=== PATIENT | female | born 1945 | race Caucasian/White ===

== ENCOUNTER 2018-09-21 11:51 | Inpatient (IN) ==
[2018-09-21] MEDS ORDERED: Diphtheria/Tetanus/Pertussis Vaccine Inj 0.5 ML Syringe IM ONE (11:57)
--- NOTE | 2018-09-21 12:10 | ED ---
HPI General Chief Complaint: Fall Stated Complaint: Trauma Alert Time Seen by Provider: 09/21/18 12:03 Source: patient Mode of arrival: EMS Limitations: no limitations History of Present Illness HPI narrative: 72 y/o female was riding her horse when she got hit by a tree and fell down. She was repetitive and confused and was given a GCS of 14 initially. She was in a deeply [place] area and they had a hard time getting to her by her one. When they got to her her vitals were stable. She noted left shoulder pain and had lacerations to her head. Patient currently confirms pain to her left shoulder and her head and denies other complaints. History is limited on initial examination given acuity Related Data Home Medications Medication Instructions Recorded Confirmed No Known Home Medications 09/21/18 09/21/18 Allergies Allergy/AdvReac Type Severity Reaction Status Date / Time No Known Allergies Allergy Verified 09/21/18 12:39 Review of Systems ROS: all other systems reviewed are negative PMFSH History History Provided By: Patient (denies medical, no medications) Social History Social History Recent Travel in [facility] within the Last 8 Weeks: No Recent Out of Country Travel within the Last 8 Weeks: No Exam Narrative Exam Narrative: GENERAL: 72 y/o female who appears uncomfortable SKIN: Focused skin assessment warm/dry. HEAD: patient with supraorbital laceration to left eye just below eyebrow laterally, there is also concurrently to the left posterior portion of the pinna laceration noted as well EYES: Pupils equal and round. No scleral icterus. No injection or drainage. ENT: No nasal bleeding or discharge. Mucous membranes pink and moist. NECK: Trachea midline. CARDIOVASCULAR: Regular rate and rhythm. RESPIRATORY: No accessory muscle use. Clear to auscultation. Breath sounds equal bilaterally. GASTROINTESTINAL: Abdomen soft, non-tender, nondistended. MUSCULOSKELETAL: No obvious deformities. No clubbing. No cyanosis. Pain with palpation of left shoulder, no pain with other joints , neurovascularly intact, no lacerations over, compartments soft. NEUROLOGICAL: Awake and alert. Motor grossly within normal limits. Normal speech Course Reevaluation(s) Reevaluation #1: ED workup without emergent findings. Trauma surgeon reviewed imaging and agrees no emergent findings. C-collar removed. Lacerations repaired. Sister at bedside, when patient tries to ambulate she gets too dizzy and can only make a step with 2 people helping assist her. This is likely related to her concussion and she will need to be observed overnight. Consultations Consultation #1: dr denney called and notified to be available if needed and given ems report dr denney updated and agrees to admit given initial loss of consciousness, intermittent confusion, dizziness and inability to ambulate Initial Documented Vital Signs Pulse Oximetry 100 09/21/18 12:01 Last Documented Vital Signs Pulse Oximetry 100 09/21/18 12:42 Procedures Laceration Laceration 1: Site: face Side (If applicable): left Size (cm): 0.5 Description: linear Depth: simple, single layer Anesthetic used: lidocaine 1% Anesthesia technique:: local infiltration Amount (mL): 2 Pre-repair:: wound explored, irrigated extensively and deep structures intact Skin layer closed with: ethilon Size (cm): 4-0 Number of sutures:: 2 Technique:: simple, interrupted Laceration 2: Site: face Side (If applicable): left Size (cm): 5 Description: linear and flap Depth: simple, single layer Anesthetic used: lidocaine 1% Anesthesia technique:: local infiltration Amount (mL): 6 Pre-repair:: wound explored, irrigated extensively and deep structures intact Skin layer closed with: prolene Size (cm): 4-0 Number of sutures:: 10 Technique:: simple, interrupted Ultrasound POC Ultrasound Procedure: Emergency department E-FAST was performed with patient consent. The curvilinear probe was used in the right upper quadrant/Morison's pouch, suprapubic, left upper quadrant/spleenorenal space, epigastric, parasternal long axis and anterior bilateral chest wall. There was no evidence of peritoneal free fluid, pericardial effusion, or pneumothorax. Quality Measure Queries Trauma Alert - Level Two Trauma Alert Level Two: Full trauma team activation, Patient evaluated and Trauma Surgeon called Medical Decision Making MDM Narrative Medical decision making narrative: . Patient arrived in the trauma bay with stable vitals. Bedside fast without free fluid, I stats reviewed, chest x-ray and pelvis x-ray noted, Patient went to CT and will follow Medical Screen Exam Complete: Yes Emergency Medical Condition: Yes Differential Diagnosis Differential Diagnosis: Pneumothorax, head bleed, fracture Lab Data Lab results reviewed: Yes I reviewed the patient's lab results. Result diagrams: 09/21/18 11:55 Lab Results 09/21/18 09/21/18 09/21/18 Range/Units 11:55 11:55 11:55 WBC 12.7 H (4.0-11.0) th/mm3 RBC 4.21 (4.00-5.30) mil/mm3 Hgb 13.0 (11.6-15.3) gm/dL POC Hgb (Calc) 11.9 (11.6-15.3) g/dL Hct 38.0 (35.0-46.0) % POC Hct 35.0 (35-46.0) % MCV 90.3 (80.0-100.0) fL MCH 30.9 (27.0-34.0) pg MCHC 34.3 (32.0-36.0) % RDW 12.8 (11.6-17.2) % Plt Count 249 (150-450) th/mm3 MPV 8.0 (7.0-11.0) fL Neut % (Auto) 75.1 H (16.0-70.0) % Lymph % (Auto) 18.5 (9.0-44.0) % Broome % (Auto) 5.4 (0.0-8.0) % Eos % (Auto) 0.5 (0.0-4.0) % Baso % (Auto) 0.5 (0.0-2.0) % Neut # (Auto) 9.5 H (1.8-7.7) th/mm3 Lymph # (Auto) 2.3 (1.0-4.8) th/mm3 Broome # (Auto) 0.7 (0.0-0.9) th/mm3 Eos # (Auto) 0.1 (0.0-0.4) th/mm3 Baso # (Auto) 0.1 (0.0-0.2) th/mm3 WBC Differential . Differential Comment Auto diff final PT 10.8 (9.8-11.6) sec INR 1.1 Ratio APTT 23.3 L (23.4-31.7) sec POC Sodium 140 (137-144) mmol/L POC Potassium 3.5 L (3.6-5.0) mmol/L POC Chloride 107 (102-111) mmol/L POC BUN 8 (5-21) mg/dL POC Creatinine 0.5 L (0.6-1.3) mg/dL POC Glucose 130 H (68-110) mg/dL Blood Type Antibody Screen 09/21/18 Range/Units 11:55 WBC (4.0-11.0) th/mm3 RBC (4.00-5.30) mil/mm3 Hgb (11.6-15.3) gm/dL POC Hgb (Calc) (11.6-15.3) g/dL Hct (35.0-46.0) % POC Hct (35-46.0) % MCV (80.0-100.0) fL MCH (27.0-34.0) pg MCHC (32.0-36.0) % RDW (11.6-17.2) % Plt Count (150-450) th/mm3 MPV (7.0-11.0) fL Neut % (Auto) (16.0-70.0) % Lymph % (Auto) (9.0-44.0) % Broome % (Auto) (0.0-8.0) % Eos % (Auto) (0.0-4.0) % Baso % (Auto) (0.0-2.0) % Neut # (Auto) (1.8-7.7) th/mm3 Lymph # (Auto) (1.0-4.8) th/mm3 Broome # (Auto) (0.0-0.9) th/mm3 Eos # (Auto) (0.0-0.4) th/mm3 Baso # (Auto) (0.0-0.2) th/mm3 WBC Differential Differential Comment PT (9.8-11.6) sec INR Ratio APTT (23.4-31.7) sec POC Sodium (137-144) mmol/L POC Potassium (3.6-5.0) mmol/L POC Chloride (102-111) mmol/L POC BUN (5-21) mg/dL POC Creatinine (0.6-1.3) mg/dL POC Glucose (68-110) mg/dL Blood Type O Negative Antibody Screen Negative Imaging Data Attestation: I personally reviewed and interpreted this imaging study as follows : Radiologist's impression: Shoulder X-Ray 09/21/18 00:00 CONCLUSION: No acute fracture or joint dislocation. Chest X-Ray 09/21/18 11:52 CONCLUSION: No focal or acute intrathoracic disease. Pelvis X-Ray 09/21/18 11:52 CONCLUSION: No acute fracture or joint dislocation. Abdomen/Pelvis CT 09/21/18 11:55 CONCLUSION: 1. No acute pathology in the abdomen and pelvis. 2. 1.1 cm benign-appearing right hepatic cyst. 3. Degenerative changes throughout the lumbar spine and pelvis. Cervical Spine CT 09/21/18 11:55 CONCLUSION: 1. No acute bony fracture. 2. Mild broad-based bulging with disc osteophyte complex at C5-6. 3. Bilateral facet arthritis at multiple levels. 4. Minimal anterior spondylolisthesis of C4 over C5 by approximately [address] 09/21/18 11:55 CONCLUSION: 1. No acute intrathoracic disease. Face CT 09/21/18 11:55 CONCLUSION: 1. No acute bony fracture. Head CT 09/21/18 11:55 CONCLUSION: 1. Unremarkable CT scan of the brain. . Discharge Plan Discharge Disposition Patient Disposition: 30 Still Patient Discharge Details Diagnosis: Concussion, Fall, Face lacerations Physicians Team ED Provider: Ermelinda Hoang Primary Care Provider: Primary Care Physici,No Other Providers: Vanda Solis ; Roula Brewster ; Mian Elkins ; Janette Quinones ; Ezekiel Giron ; Lee Denney ; Perico Babin ; Vick Ballard ; [employer] [facility] Rxs /Orders / Referrals /Forms Prescriptions: No Action No Known Home Medications RF: 0 Status ED Status: Admitted Observation Patient
--- NOTE | 2018-09-21 12:14 | XR ---
EXAM DATE: 09/21/2018 12:03 PM EST AGE/SEX: 89 years / Female INDICATIONS: Trauma alert, fall off of a horse. CLINICAL DATA: This is the patient's initial encounter. Patient reports that signs and symptoms have been present for 1 day and indicates a pain score of 4/10. MEDICAL/SURGICAL HISTORY: None. None. COMPARISON: No prior exams available for comparison. FINDINGS: Patient's on a trauma board. The lungs are grossly clear and well-aerated. The heart size is within n ormal limits. The visualized bony structures are grossly intact. CONCLUSION: No focal or acute intrathoracic disease. Electronically signed by: Hang Nugent MD 09/21/2018 12:12 PM EST
--- NOTE | 2018-09-21 12:16 | XR ---
EXAM DATE: 09/21/2018 12:04 PM EST AGE/SEX: 89 years / Female INDICATIONS: Trauma alert, fall from horse. CLINICAL DATA: This is the patient's initial encounter. Patient reports that signs and symptoms have been present for 1 day and indicates a pain score of 3/10. MEDICAL/SURGICAL HISTORY: None. None. COMPARISON: No prior exams available for comparison. FINDINGS: Examination of the pelvis demonstrates no evidence of fracture or dislocation. Bony mineralization i s normal. There is no widening of the sacroiliac joints. There is good alignment at the hip joints. No foreign body is identified. There are degenerative changes involving the lower lumbar spine. CONCLUSION: No acute fracture or joint dislocation. Electronically signed by: Hang Nugent MD 09/21/2018 12:14 PM EST
[2018-09-21 12:27] LABS: Baso # (Auto) 0.1 th/mm3 (0.0-0.2); Baso % (Auto) 0.5 % (0.0-2.0); Eos # (Auto) 0.1 th/mm3 (0.0-0.4); Eos % (Auto) 0.5 % (0.0-4.0); Lymph # (Auto) 2.3 th/mm3 (1.0-4.8); Lymph % (Auto) 18.5 % (9.0-44.0); Mean Corpuscular HGB Conc 34.3 % (32.0-36.0); Mean Corpuscular Hemoglobin 30.9 pg (27.0-34.0); Mean Corpuscular Volume 90.3 fL (80.0-100.0); Mono # (Auto) 0.7 th/mm3 (0.0-0.9); Mono % (Auto) 5.4 % (0.0-8.0); Neut # (Auto) 9.5 th/mm3 (1.8-7.7); Neut % (Auto) 75.1 % (16.0-70.0); Platelet Count 249 th/mm3 (150-450); Red Blood Count 4.21 mil/mm3 (4.00-5.30); Red Cell Distribution Width 12.8 % (11.6-17.2); White Blood Count 12.7 th/mm3 (4.0-11.0)
--- NOTE | 2018-09-21 12:34 | CT ---
EXAM DATE: 09/21/2018 12:29 PM EST AGE/SEX: 89 years / Female INDICATIONS: Trauma Alert, Fall from horse CLINICAL DATA: This is the patient's initial encounter. Patient reports that signs and symptoms have been present for 1 day and indicates a pain score of Nonresponsive. MEDICAL/SURGICAL HISTORY: Non-responsive. Non-responsive. RADIATION DOSE: 66.34 CTDI (mGy) COMPARISON: No prior exams available for comparison. TECHNIQUE: CT of the head without contrast. Using automated exposure control and adjustment of the mA and/or kV according to patient size, radiation dose was kept as low as reasonably achievable to ob tain optimal diagnostic quality images. DICOM format image data is available electronically for revi ew and comparison. FINDINGS: Cerebrum: The ventricles are normal for age. No evidence of midline shift, mass lesion, hemorrhage or acute infarction. No extraaxial fluid collections are seen. Posterior Fossa: The cerebellum and brainstem are intact. The 4th ventricle is midline. The cerebe llopontine angle is unremarkable. Extracranial: The visualized portion of the orbits is intact. Skull: The calvaria is intact. No evidence of skull fracture. CONCLUSION: 1. Unremarkable CT scan of the brain. . Electronically signed by: Hang Nugent MD 09/21/2018 12:33 PM EST
[2018-09-21 12:37] LABS: Activated Partial Thrombo Time 23.3 sec (23.4-31.7); INR 1.1 Ratio; Prothrombin Time 10.8 sec (9.8-11.6)
--- NOTE | 2018-09-21 12:37 | XR ---
EXAM DATE: 09/21/2018 12:34 PM EST AGE/SEX: 89 years / Female INDICATIONS: Trauma Alert. Fell off horse. Minor pain in shoulder. CLINICAL DATA: This is the patient's initial encounter. Patient reports that signs and symptoms have been present for 1 day and indicates a pain score of 3/10. MEDICAL/SURGICAL HISTORY: None. None. COMPARISON: No prior exams available for comparison. FINDINGS: Bony structures are intact and in normal alignment. Joints are intact without dislocation or signifi cant arthropathy. Osseous density is normal. Soft tissues are unremarkable. No radiopaque foreign bodies seen. CONCLUSION: No acute fracture or joint dislocation. Electronically signed by: Hang Nugent MD 09/21/2018 12:36 PM EST
--- NOTE | 2018-09-21 12:42 | CT ---
EXAM DATE: 09/21/2018 12:32 PM EST AGE/SEX: 89 years / Female INDICATIONS: Trauma Alert, Fall from horse CLINICAL DATA: This is the patient's initial encounter. Patient reports that signs and symptoms have been present for 1 day and indicates a pain score of Nonresponsive. MEDICAL/SURGICAL HISTORY: Non-responsive. Non-responsive. RADIATION DOSE: 19.30 CTDI (mGy) COMPARISON: No prior exams available for comparison. TECHNIQUE: Contiguous axial images were obtained using helical multirow detector technique. The vol umetric data was post-processed with multiplanar reconstruction in oblique axial, sagittal, and coron al planes. Using automated exposure control and adjustment of the mA and/or kV according to patient s ize, radiation dose was kept as low as reasonably achievable to obtain optimal diagnostic quality armand ges. DICOM format image data is available electronically for review and comparison. FINDINGS: Vertebrae: Normal vertebral body height. There is mild to moderate degenerative changes involving th e mid to lower cervical spine. There is disc space narrowing at C5-6 and C6-7. No acute bony fracture s are demonstrated. Alignment: Very mild anterior subluxation of C4 over C5 by approximately 2 mm. C2-3: The bony spinal canal is normal in size. No evidence of disc bulge or herniation. The neural foramina are bilaterally patent. Bilateral facet arthritis. C3-4: The bony spinal canal is normal in size. No evidence of disc bulge or herniation. The neural foramina are bilaterally patent. Bilateral facet arthritis. C4-5: The bony spinal canal is normal in size. No evidence of disc bulge or herniation. The neural foramina are bilaterally patent. Bilateral facet arthritis, right greater than left. C5-6: Mild broad-based bulging with disc osteophyte complex.. The neural foramina are bilaterally p atent. Bilateral facet arthritis. C6-7: The bony spinal canal is normal in size. No evidence of disc bulge or herniation. The neural foramina are bilaterally patent. Mild facet arthritis. C7-T1: The bony spinal canal is normal in size. No evidence of disc bulge or herniation. The neura l foramina are bilaterally patent. CONCLUSION: 1. No acute bony fracture. 2. Mild broad-based bulging with disc osteophyte complex at C5-6. 3. Bilateral facet arthritis at multiple levels. 4. Minimal anterior spondylolisthesis of C4 over C5 by approximately 2 mm. Electronically signed by: Hang Nugent MD 09/21/2018 12:40 PM EST
--- NOTE | 2018-09-21 12:43 | CT ---
EXAM DATE: 09/21/2018 12:34 PM EST AGE/SEX: 89 years / Female INDICATIONS: Trauma Alert, Fall from horse CLINICAL DATA: This is the patient's initial encounter. Patient reports that signs and symptoms have been present for 1 day and indicates a pain score of Nonresponsive. MEDICAL/SURGICAL HISTORY: Non-responsive. Non-responsive. RADIATION DOSE: 21.96 CTDI (mGy) COMPARISON: No prior exams available for comparison. TECHNIQUE: Contiguous images in the axial and coronal planes were obtained using helical multirow de tector technique. Using automated exposure control and adjustment of the mA and/or kV according to p atient size, radiation dose was kept as low as reasonably achievable to obtain optimal diagnostic baltazar lity images. DICOM format image data is available electronically for review and comparison. FINDINGS: Orbits: The orbital and infraorbital osseous structures are intact. The retroconal structures have a normal configuration. No radiopaque foreign bodies are seen. Nasal Bone: The nasal bone and maxillary spine are intact. Zygomatic Arches: Symmetric without evidence of fracture. Sinuses: The maxillary, ethmoid, and frontal sinuses are intact. No air-fluid levels seen. Nasal Cavity: Mild nasal septal deviation to the right. There is an aerated roxana bullosa involving the middle turbinate on the right. Soft Tissues: No radiopaque foreign bodies seen. No soft-tissue swelling is seen. Intracranial: No intracranial air seen. Cribriform Plate: Grossly intact. CONCLUSION: 1. No acute bony fracture. Electronically signed by: Hang Nugent MD 09/21/2018 12:42 PM EST
--- NOTE | 2018-09-21 12:46 | CT ---
EXAM DATE: 09/21/2018 12:38 PM EST AGE/SEX: 89 years / Female INDICATIONS: Trauma Alert CLINICAL DATA: This is the patient's initial encounter. Patient reports that signs and symptoms have been present for 1 day and indicates a pain score of Nonresponsive. MEDICAL/SURGICAL HISTORY: Non-responsive. Non-responsive. ORAL CONTRAST: No oral contrast ingested. RADIATION DOSE: 5.18 CTDI (mGy) ; Combined studies COMPARISON: No prior exams available for comparison. TECHNIQUE: Multiple contiguous axial images were obtained through the abdomen and pelvis following b olus infusion of 96ML ml Omnipaque 350 (iohexol) nonionic water-soluble contrast as a cumulative do se for multiple exams. No oral contrast ingested. Using automated exposure control and adjustment of the mA and/or kV according to patient size, radiation dose was kept as low as reasonably achievable to obtain optimal diagnostic quality images. DICOM format image data is available electronically for review and comparison. FINDINGS: Lower Lungs: The visualized lower lungs are clear. Liver: The liver has a homogeneous density. There is a 1.1 cm cyst in the right lobe of the liver. Th e gallbladder is unremarkable.. There is no dilation of the biliary tree. Spleen: Homogeneous density without enlargement. Pancreas: Unremarkable without mass or calcification. Kidneys: Normal in size and shape. No evidence of mass or hydronephrosis. Adrenal Glands: Unremarkable. Aorta: The aorta and proximal iliac vessels are grossly unremarkable without aneurysmal dilation. Bowel/Mesentery: The bowel loops are grossly unremarkable. The cecum and sigmoid colon have a normal configuration. No free fluid in the abdomen. There is stool throughout the colon. Abdominal Wall: Intact. Retroperitoneum: No evidence of adenopathy in the retrocrural, para-aortic, or deep pelvic regions. Bladder: Contours are smooth. Reproductive Organs: No abnormal masses or calcifications seen. Inguinal: The inguinal region is unremarkable without evidence of adenopathy. Bony Structures: No acute bony fracture. There are primary degenerative changes throughout the lumba r spine and pelvis. CONCLUSION: 1. No acute pathology in the abdomen and pelvis. 2. 1.1 cm benign-appearing right hepatic cyst. 3. Degenerative changes throughout the lumbar spine and pelvis. Electronically signed by: Hang Nugent MD 09/21/2018 12:45 PM EST
[2018-09-21] MEDS ORDERED: Lidocaine 1% Inj 50 ML Vial INFILTRATN ONE (12:47)
--- NOTE | 2018-09-21 12:49 | CT ---
EXAM DATE: 09/21/2018 12:36 PM EST AGE/SEX: 89 years / Female INDICATIONS: Trauma Alert CLINICAL DATA: This is the patient's initial encounter. Patient reports that signs and symptoms have been present for 1 day and indicates a pain score of Nonresponsive. MEDICAL/SURGICAL HISTORY: Non-responsive. Non-responsive. RADIATION DOSE: 5.18 CTDI (mGy) COMPARISON: No prior exams available for comparison. TECHNIQUE: Multiple contiguous axial images were obtained through the chest during bolus infusion of 96ML ml Omnipaque 350 (iohexol) nonionic water-soluble contrast as a cumulative dose for multiple e xams. Images were obtained in suspended respiration using multiple row detector helical technique. Using automated exposure control and adjustment of the mA and/or kV according to patient size, radia tion dose was kept as low as reasonably achievable to obtain optimal diagnostic quality images. DICO M format image data is available electronically for review and comparison. FINDINGS: Lungs: The lungs are symmetrically aerated. No infiltrates or nodular densities are seen. Mediastinum: There is good visualization of the great vessels of the middle mediastinum. No evidenc e of mediastinal or hilar adenopathy/mass. Pleurae: No evidence of focal thickening or pleural effusion. Axillae: Unremarkable. Bony Structures: No acute bony fracture. There are some degenerative changes involving the thoracic spine. Miscellaneous: The examination was extended to include the upper abdomen, and both adrenal glands ar e normal in size and configuration. CONCLUSION: 1. No acute intrathoracic disease. Electronically signed by: Hang Nugent MD 09/21/2018 12:47 PM EST
[2018-09-21] MEDS ORDERED: HYDROmorphone PF Inj 0.5 MG/0.5 ML Syringe IV.PUSH PRN ×2 (15:23→18:04)
[2018-09-21] MEDS: Sod Chloride 0.9% Inj 1,000 ML IV.CONT SCH (16:22)
[2018-09-21] MEDS: Pantoprazole Inj 40 MG Vial IV.PUSH SCH (17:21)
[2018-09-21] MEDS: Docusate Sodium 100 MG Capsule PO SCH (21:24)
--- NOTE | 2018-09-21 22:00 | MH ---
cc: Lee Goodman MD DATE OF ADMISSION: 09/21/2018 CHIEF COMPLAINT: Fall from horse. HISTORY OF PRESENT ILLNESS: The patient is a 72-year-old female status post horse riding when she got hit by a tree and fell off. She was noted to be repetitive and confused with initial GCS of 14, positive LOC, nonhelmeted. She came to the emergency department for further evaluation including a complete workup with CT scans without evidence of pathological findings. The patient concerned for concussion and was dizzy on ambulation. The patient states she has never had an accident like this before. She has had some falls; however, without evidence of any injury. She is noted to be hemodynamically stable in the emergency department and primary and secondary surveys were done. Otherwise, negative except for above. PAST MEDICAL HISTORY: The patient has no medical history. PAST SURGICAL HISTORY: Tonsillectomy. MEDICATIONS: No known medications. ALLERGIES: NO KNOWN DRUG ALLERGIES. SOCIAL HISTORY: Denies smoking, ETOH or IVDA. FAMILY HISTORY: Denies diabetes or hypertension. REVIEW OF SYSTEMS: A 12-point review of systems is otherwise negative except for above. PHYSICAL EXAMINATION: VITAL SIGNS: Temperature 97.8, pulse 62, respirations 19, blood pressure 138/67, saturation 99%. HEENT: Pupils equal, round and reactive. Left lateral aspect of orbit abrasion with laceration, status post left-sided face repair with suture. NECK: Supple. Trachea midline. LUNGS: Clear to auscultation with bilateral expansion. HEART: S1, S2. Regular. ABDOMEN: Soft, nontender, nondistended. EXTREMITIES: Warm and well perfused nontender. BACK: No step-off. Clavicles nontender. PELVIC: Stable. LABORATORY AND DIAGNOSTIC DATA: WBC 12.7, hemoglobin 13, hematocrit 38, platelets 249. INR 1.1. Sodium 140, potassium 3.5, chloride 107, BUN 8, creatinine 0.5, glucose 130. CT scans reviewed by myself showing a CT head with no evidence of fracture. CT face, no facial fractures. CT C-spine, no fracture. CT abdomen and pelvis, no abdominal pathologic issue. Pelvic x-ray and chest x-ray, no fracture. Shoulder x-ray, no fracture. ASSESSMENT: The patient is a 72-year-old female status post fall from a horse with positive concussion. PLAN: After a full workup, the patient with the above-noted issues. At this point, the patient with concussion and some confusion and repetition. Currently, GCS of 15. The patient will need to be admitted for observation and monitoring overnight. Discussed with the patient in detail. The patient can have regular diet, pain control, IV fluids. Again, will have close to 24-hour monitoring. We will have physical therapy also evaluate the patient. MD MATT Hagen/dolores , 09:19 PM , 09:27 PM
[2018-09-22] MEDS ORDERED: Chlorhexidine Gluconate 2% 1 Pack (2 Cloths) TOPICAL SCH (04:00)
[2018-09-22] MEDS ORDERED: Chlorhexidine Gluconate 2% 1 Pack (2 Cloths) TOPICAL PRN (04:00)
[2018-09-22] MEDS: Sod Chloride 0.9% Inj 1,000 ML IV.CONT SCH ×4 (05:30→21:40)
[2018-09-22] MEDS: Docusate Sodium 100 MG Capsule PO SCH ×2 (09:55→21:39)
--- NOTE | 2018-09-22 12:15 | P.PN ---
Subjective Interval history: Trauma PT D: 1 Patient lying in bed with eyes closed. Easily aroused. No distress noted. Patient states, "I am okay. Much better than yesterday." "My wrist [right] is a little weak. A little bit numb." Physical Exam Vital signs: Vital Signs 09/21/18 12:42 09/21/18 13:00 09/21/18 15:07 Temperature Pulse Rate 60 58 L Respiratory Rate 20 17 Blood Pressure 144/67 H 117/70 Pulse Oximetry 100 97 99 09/21/18 15:55 09/21/18 17:15 09/21/18 20:18 Temperature 97.8 F 99.1 F Pulse Rate 64 62 63 Respiratory Rate 17 19 17 Blood Pressure 126/60 138/67 115/59 L Pulse Oximetry 99 99 98 09/22/18 00:00 09/22/18 03:37 09/22/18 05:00 Temperature 98.8 F 99.1 F Pulse Rate 74 62 59 L Respiratory Rate 18 17 18 Blood Pressure 124/59 L 126/57 L 129/62 Pulse Oximetry 98 09/22/18 06:40 09/22/18 07:40 Temperature 99.5 F 97.8 F Pulse Rate 65 68 Respiratory Rate 18 16 Blood Pressure 127/61 125/65 Pulse Oximetry 98 98 Intake & Output 09/21/18 09/22/18 09/22/18 18:59 06:59 18:59 Intake Total 1480 / 1480 Balance 1480 / 1480 Weight 56.9 kg 56.9 kg Intake: IV 1000 / 1000 NS Inj 1,000 ML @ 100 mls/hr IV 1000 / 1000 .CONT .Q10H [facility] Rx#:[id number] Oral 480 / 480 Other: # Voids 3 Date of Last Bowel Movement 09/21/18 Weight On Admission 56.9 kg Narrative: GENERAL: This is a 80-year-old female lying in bed. No distress noted. SKIN: Warm and dry. Scattered abrasions/ecchymosis to left side of face. Small superficial laceration to left eyebrow. HEAD: Atraumatic. Normocephalic. EYES: PERRLA ENT: No nasal bleeding or discharge. Mucous membranes pink and moist. NECK: Trachea midline. No JVD. CARDIOVASCULAR: Regular rate and rhythm. RESPIRATORY: No accessory muscle use. Lungs are clear to auscultation. Breath sounds equal bilaterally. No distress or dyspnea. GASTROINTESTINAL: BS + x 4 quads. Abdomen soft, non-tender, nondistended. MUSCULOSKELETAL: Extremities without cyanosis, or edema. + peripheral pulses x 4 extremities. Warm with good capillary refill and sensation. MAEW. Patient has decreased strength to right upper extremity, with slight C/O numbness. NEUROLOGICAL: Awake and alert. Normal speech and pattern. Results - Labs CBC & Chem 7: 09/21/18 11:55 Laboratory Results - last 24 hr 09/21/18 09/21/18 09/21/18 11:55 11:55 11:55 WBC 12.7 H RBC 4.21 Hgb 13.0 POC Hgb (Calc) 11.9 Hct 38.0 POC Hct 35.0 MCV 90.3 MCH 30.9 MCHC 34.3 RDW 12.8 Plt Count 249 MPV 8.0 Neut % (Auto) 75.1 H Lymph % (Auto) 18.5 [place] % (Auto) 5.4 Eos % (Auto) 0.5 Baso % (Auto) 0.5 Neut # (Auto) 9.5 H Lymph # (Auto) 2.3 [place] # (Auto) 0.7 Eos # (Auto) 0.1 Baso # (Auto) 0.1 WBC Differential . Differential Comment Auto diff final PT 10.8 INR 1.1 APTT 23.3 L POC Sodium 140 POC Potassium 3.5 L POC Chloride 107 POC BUN 8 POC Creatinine 0.5 L POC Glucose 130 H Blood Type Antibody Screen 09/21/18 11:55 WBC RBC Hgb POC Hgb (Calc) Hct POC Hct MCV MCH MCHC RDW Plt Count MPV Neut % (Auto) Lymph % (Auto) [place] % (Auto) Eos % (Auto) Baso % (Auto) Neut # (Auto) Lymph # (Auto) [place] # (Auto) Eos # (Auto) Baso # (Auto) WBC Differential Differential Comment PT INR APTT POC Sodium POC Potassium POC Chloride POC BUN POC Creatinine POC Glucose Blood Type O Negative Antibody Screen Negative - Imaging Impressions Shoulder X-Ray 09/21/18 00:00 CONCLUSION: No acute fracture or joint dislocation. Chest X-Ray 09/21/18 11:52 CONCLUSION: No focal or acute intrathoracic disease. Pelvis X-Ray 09/21/18 11:52 CONCLUSION: No acute fracture or joint dislocation. Abdomen/Pelvis CT 09/21/18 11:55 CONCLUSION: 1. No acute pathology in the abdomen and pelvis. 2. 1.1 cm benign-appearing right hepatic cyst. 3. Degenerative changes throughout the lumbar spine and pelvis. Cervical Spine CT 09/21/18 11:55 CONCLUSION: 1. No acute bony fracture. 2. Mild broad-based bulging with disc osteophyte complex at C5-6. 3. Bilateral facet arthritis at multiple levels. 4. Minimal anterior spondylolisthesis of C4 over C5 by approximately [address] 09/21/18 11:55 CONCLUSION: 1. No acute intrathoracic disease. Face CT 09/21/18 11:55 CONCLUSION: 1. No acute bony fracture. Head CT 09/21/18 11:55 CONCLUSION: 1. Unremarkable CT scan of the brain. . Assessment and Plan - Assessment (1) Concussion Code(s): S06.0X9A - Concussion with loss of consciousness of unspecified duration, initial encounter Status: Acute (2) Fall Code(s): W19.XXXA - Unspecified fall, initial encounter Status: Acute (3) Face lacerations Code(s): S01.81XA - Laceration without foreign body of other part of head, initial encounter Status: Acute - Plan TANANA: This is a [id number]-old female who sustained injuries while riding her horse. She got hit by a tree, and fell. She was confused with repetitive questioning. INJURIES: Concussion LEFT eye laceration LEFT anterior pinna laceration LEFT face lac (2, 2 sutures) Minimal anterior spondylolisthesis of C4 over C5 by approximately 2 mm Right hepatic cyct Procedures: Consults: Neurosurgery. Case management. Patient with complaints of right wrist/upper extremity weakness with numbness. Will obtain MRI C-spine, and consult neurosurgery for further evaluation and care. Diet: Regular diet. Tolerating po diet. Encourage good po intake with each meal. Pulmonary: Encourage good pulmonary toileting. IS at bedside and pt encouraged to use. Rationale for use explained to patient, and verbalized understanding. PAIN Management: Oxycodone 5-10 mg q 4h. Dilaudid 0.5 mg q 4h for breakthrough pain. Activity: OOB. PT and OT ordered. GI prophylaxis: Protonix 40 mg IV Bowel regimen: Colace. MOM. LBM: 0 DVT prophylaxis: Mechanical VTE with SCDs. Chemical management TBD. DC Planning: Case management consulted for assistance with final discharge disposition. Emotional support provided to patient at bedside and plan of care discussed. Discussed with RN at bedside. Discussed pt condition and plan of care with collaborating trauma surgeon. Patient is hemodynamically stable and being managed on the med/surg floor. The trauma team will round each day, and evaluate plan of care on a daily basis. Concussion LEFT eye laceration LEFT anterior pinna laceration LEFT face lac (2, 2 sutures) Serial neuro checks Supportive care Prevent secondary head injury Postconcussive education Follow-up in concussion clinic upon discharge Wash facial sutures daily with soap and water. Pat dry. Plan for suture removal in 3-5 days. Right upper extremity weakness Worrisome for spinal cord injury Neurosurgery consulted -awaiting assessment and plan Supportive care Pain management 09/21: CT C-spine - Mild broad-based bulging with disc osteophyte complex at C5- 6. Bilateral facet arthritis at multiple levels. Minimal anterior spondylolisthesis of C4 over C5 by approximately 2 mm. Obtain chest x-ray right wrist to evaluate for possible injury Obtain MRI C-spine for further evaluation due to weakness and numbness. Encourage out of bed PT and OT ordered Bowel regimen SCDs for DVT prophylaxis - Attending Attestation She is seen and examined to nurse practitioner, she is overall stable however she is weakness right upper extremity given her mechanism with degenerative changes on her CAT scan she certainly might have had some spinal cord contusion we will order an MRI of the C-spine and also neurosurgical consult- (1) Concussion Qualifiers: Encounter type: initial encounter Loss of consciousness presence/duration: with LOC of unspecified duration Qualified Code(s): S06.0X9A - Concussion with loss of consciousness of unspecified duration, initial encounter (2) Fall Qualifiers: Encounter type: initial encounter Qualified Code(s): W19.XXXA - Unspecified fall, initial encounter (3) Face lacerations Qualifiers: Encounter type: initial encounter Qualified Code(s): S01.81XA - Laceration without foreign body of other part of head, initial encounter
--- NOTE | 2018-09-22 15:56 | XR ---
EXAM DATE: 09/22/2018 3:51 PM EST AGE/SEX: 72 years / Female INDICATIONS: Evaluate right wrist for trauma, fell from horse. Patient complains of numbness right w rist. CLINICAL DATA: This is the patient's initial encounter. Patient reports that signs and symptoms have been present for 2 days and indicates a pain score of 0/10. MEDICAL/SURGICAL HISTORY: None. None. COMPARISON: No prior exams available for comparison. FINDINGS: Bony structures are intact and in normal alignment. Joints are intact without dislocation. There are some mild degenerative changes involving the carpal bones. There are some degenerative changes of th e first carpal metacarpal joint. Osseous density is osteopenic.. Soft tissues are unremarkable. No radiopaque foreign bodies seen. CONCLUSION: 1. No acute fracture or joint dislocation. 2. Degenerative arthritis involving the carpal bones. Electronically signed by: Hang Nugent MD 09/22/2018 3:55 PM EST
--- NOTE | 2018-09-22 16:36 | MR ---
EXAM DATE: 09/22/2018 4:22 PM EST AGE/SEX: 72 years / Female INDICATIONS: Trauma. Pt thrown from horse. CLINICAL DATA: This is the patient's initial encounter. Patient reports that signs and symptoms have been present for 2 days and indicates a pain score of 3/10. MEDICAL/SURGICAL HISTORY: None. Tonsillectomy. COMPARISON: [facility] – [place], CT CERVICAL SPINE W/O CONTRAST, 09/21/2018. . TECHNIQUE: Multiplanar, multisequence MRI examination of the cervical spine was performed without co ntrast. FINDINGS: Vertebrae: Normal vertebral body height. Homogeneous marrow signal. Prominent degenerative disc dis ease at C5-6 and C6-7 levels. Diffuse disc desiccation. No acute compression fracture. Alignment: Minimal anterolisthesis C4 on 5 and minimal retrolisthesis C5 on 6.. Cord: High signal abnormality within the cord at C5 which is seen to the left and right of midline. Extends inferiorly to C6 and C6-7 disc space level which demonstrates high signal abnormality more no tably centrally and to the left of midline. Post Fossa: The cerebellar tonsils are normal in position. C2-C3: The thecal sac has a normal configuration. There is no evidence of disc herniation or spinal canal stenosis. The neural foramina are patent bilaterally. C3-C4: Mild generalized posterior disc osteophyte complex abuts the ventral thecal sac. Uncovertebra l spurring causes mild bilateral neural foraminal narrowing greater on the left. No canal stenosis. C4-C5: Minimal anterolisthesis. Mild central/left-sided protrusion abuts the ventral thecal sac. Thi s abuts the ventral cord. No canal stenosis. Uncovertebral spurring causes mild bilateral neural fora maurice narrowing. C5-C6: Mild broad-based protrusion more eccentric to the left abuts the ventral thecal sac and ventr al cord. A mild degree of canal stenosis. There is high signal abnormality within the cord . C6-C7: Mild broad-based protrusion abuts the ventral thecal sac and abuts the ventral cord, with extr uded component extending superiorly underneath the posterior longitudinal ligament. There is mild can al stenosis. Moderate left and mild right neural foraminal narrowing. C7-T1: No epidural impressions seen. CONCLUSION: 1. Minimal anterolisthesis C4 on 5 with central/left-sided protrusion. No canal stenosis. 2. Mild broad-based protrusion more eccentric the left at C5-6 causing mild canal stenosis. There is contusion of the cord at this level. 3. Mild broad-based protrusion at C6-7 with extruded component causing mild canal stenosis. There is contusion of the cord at this level. 4. Posterior disc osteophyte complex at C3-4 without canal stenosis. 5. Contusion of the spinal cord at C5 down to C6-7 level. Electronically signed by: Compa Saleh MD 09/22/2018 4:34 PM EST
--- NOTE | 2018-09-22 17:35 | P.CONNS ---
History of Present Illness Service: Neurosurgery Consult date: 09/22/18 Requesting Physician: Lee Goodman (Trauma surgery) Reason for Consult: Cervical spinal cord injury/trauma alert Primary Care Provider: No Primary Care Physician History of Present Illness: 72-year-old female who was brought in as a trauma alert yesterday morning horse with positive loss of consciousness. Patient initially was confused with a [place] Coma Score of 14 which has improved. She is complaining of weakness in her hands bilaterally and more so on the right upper extremity with numbness in her fingers. Initial trauma workup with CT scan of the head did not reveal any acute abnormality and CT of cervical spine reveals degenerative changes at C5-6 with osteophytes. MRI scan of the cervical spine obtained today reveals extensive cervical spinal cord contusion from C4-C6 levels with C5-6 disc osteophyte complex and moderate spinal stenosis. Mild stenosis at C4-5 and C6-7 levels is also noted from disc protrusions. She relates unsteadiness in her gait but denies any incontinence. Neurosurgery consultation has been requested today. Review of Systems All other systems reviewed negative except as stated in HPI PMFSH - History History Provided By: Patient - Medical History Medical History: Medical History (Last Reviewed 09/22/18 @ 17:29 by Donaldo Carreon MD) Patient denies medical problems - Tobacco History Second Hand Smoke Exposure: No Smoking Status: Never smoker - Alcohol History How Often Do You Have a Drink Containing Alcohol: 2 to 3 times a week - Substance Use History Substance History: No History of Abuse - Travel History Recent Travel in the [place] Within the Last 8 Weeks: No Recent Travel Out of the Country Within the Last 8 Weeks: No - Immunization History Tetanus Immunization: Unsure Hx Influenza Vaccine This Season: No Medications and Allergies Active Medications: Active Medications Al Hydroxide/Mg Hydroxide (Milk Of Huber Atkinson) 30 ml PO BID [facility] Last Admin: 09/22/18 09:55 Dose: Not Given Bacitracin (Baciguent Oint) 1 applicatio TOPICAL BID [facility] Last Admin: 09/22/18 09:55 Dose: 1 applicatio Docusate Sodium (Colace) 100 mg PO BID [facility] Last Admin: 09/22/18 09:55 Dose: 100 mg Enalaprilat (Vasotec Inj) 1.25 mg IV.PUSH Q8H PRN PRN Reason: Blood pressure 180/95 Hydromorphone HCl (Dilaudid Pf Inj) 0.5 mg IV.PUSH Q3H PRN PRN Reason: Break through pain Sodium Chloride (Ns Inj) 1,000 mls @ 100 mls/hr IV.CONT .Q10H [facility] Last Admin: 09/22/18 14:36 Dose: 100 mls/hr Ondansetron HCl (Zofran Inj) 4 mg IV.PUSH Q6H PRN PRN Reason: NAUSEA OR VOMITING Oxycodone HCl (Roxicodone) 10 mg PO Q4H PRN PRN Reason: Pain 6-10 Last Admin: 09/21/18 16:38 Dose: 10 mg Oxycodone HCl (Roxicodone) 5 mg PO Q4H PRN PRN Reason: PAIN 3-5; IF UABLE TO TAKE PO Last Admin: 09/22/18 10:38 Dose: 5 mg Pantoprazole Sodium (Protonix Inj) 40 mg IV.PUSH Q24H [facility] Last Admin: 09/21/18 17:21 Dose: Not Given Sodium Chloride (Ns Flush) 2 ml IV.FLUSH UNSCH PRN PRN Reason: FLUSH AFTER USING IV ACCESS Allergies Allergy/AdvReac Type Severity Reaction Status Date / Time No Known Allergies Allergy Verified 09/21/18 12:39 Home Medications Medication Instructions Recorded Confirmed Type No Known Home Medications 09/21/18 09/21/18 History Exam Vital signs: Vital Signs 09/21/18 20:18 09/22/18 00:00 09/22/18 03:37 Temperature 99.1 F 98.8 F 99.1 F Pulse Rate 63 74 62 Respiratory Rate 17 18 17 Blood Pressure 115/59 L 124/59 L 126/57 L Pulse Oximetry 98 98 09/22/18 05:00 09/22/18 06:40 09/22/18 07:40 Temperature 99.5 F 97.8 F Pulse Rate 59 L 65 68 Respiratory Rate 18 18 16 Blood Pressure 129/62 127/61 125/65 Pulse Oximetry 98 98 09/22/18 12:00 09/22/18 13:38 09/22/18 14:25 Temperature 97.9 F 98.7 F Pulse Rate 64 67 Respiratory Rate 17 18 17 Blood Pressure 118/68 140/64 Pulse Oximetry 97 99 Intake & Output 09/21/18 09/22/18 09/22/18 18:59 06:59 18:59 Intake Total 1480 / 1480 1000 / 1000 Balance 1480 / 1480 1000 / 1000 Weight 56.9 kg 56.9 kg Intake: IV 1000 / 1000 1000 / 1000 NS Inj 1,000 ML @ 100 mls/hr IV 1000 / 1000 1000 / 1000 .CONT .Q10H [facility] Rx#:[id number] Oral 480 / 480 Other: # Voids 3 Date of Last Bowel Movement 09/21/18 09/21/18 Weight On Admission 56.9 kg - Constitutional no acute distress, obese - Routine HEENT Exam Head: Present: abrasion, laceration, hematoma Eye: Present: EOMI, PERRL, periorbital ecchymosis (Left periorbital ecchymosis and swelling) ENT: Present: mucous membranes moist, oropharynx clear, nares patent, external ear normal - Routine Neck Exam Present: supple, full ROM - Routine Respiratory Exam Present: CTA bilaterally - Routine Cardiovascular Exam Present: RRR, S1, S2 - Routine Abdominal Exam Present: soft, normoactive bowel sounds - Routine Extremities Exam Present: full ROM (Weakness in the upper extremities more prominent distally bilaterally) - Routine Skin Exam Present: intact - Routine Neurological Exam Present: oriented X3, CN II-XII intact, sensory deficit (Decreased sensation in the right hand more so on the ulnar aspect), motor deficit, abnormal gait, normal speech (Bilateral deltoids 4+/5, biceps 4/5, triceps 3/5, hand intrinsic right 2/5, left hand intrinsic 3/5, lower extremity strength 4+/5) - Routine Psychiatric Exam Present: normal affect, normal thought process, cooperative, good insight, good judgment Results - Laboratory Findings CBC and BMP: 09/21/18 11:55 Abnormal lab findings: Abnormal Labs 09/21/18 09/21/18 09/21/18 11:55 11:55 11:55 WBC 12.7 H Neut % (Auto) 75.1 H Neut # (Auto) 9.5 H APTT 23.3 L POC Potassium 3.5 L POC Creatinine 0.5 L POC Glucose 130 H - Diagnostic Findings Additional findings: Impressions Shoulder X-Ray 09/21/18 00:00 CONCLUSION: No acute fracture or joint dislocation. Chest X-Ray 09/21/18 11:52 CONCLUSION: No focal or acute intrathoracic disease. Pelvis X-Ray 09/21/18 11:52 CONCLUSION: No acute fracture or joint dislocation. Abdomen/Pelvis CT 09/21/18 11:55 CONCLUSION: 1. No acute pathology in the abdomen and pelvis. 2. 1.1 cm benign-appearing right hepatic cyst. 3. Degenerative changes throughout the lumbar spine and pelvis. Cervical Spine CT 09/21/18 11:55 CONCLUSION: 1. No acute bony fracture. 2. Mild broad-based bulging with disc osteophyte complex at C5-6. 3. Bilateral facet arthritis at multiple levels. 4. Minimal anterior spondylolisthesis of C4 over C5 by approximately [address] 09/21/18 11:55 CONCLUSION: 1. No acute intrathoracic disease. Face CT 09/21/18 11:55 CONCLUSION: 1. No acute bony fracture. Head CT 09/21/18 11:55 CONCLUSION: 1. Unremarkable CT scan of the brain. . Wrist X-Ray 09/22/18 00:00 CONCLUSION: 1. No acute fracture or joint dislocation. 2. Degenerative arthritis involving the carpal bones. Cervical Spine MRI 09/22/18 12:10 CONCLUSION: 1. Minimal anterolisthesis C4 on 5 with central/left-sided protrusion. No canal stenosis. 2. Mild broad-based protrusion more eccentric the left at C5-6 causing mild canal stenosis. There is contusion of the cord at this level. 3. Mild broad-based protrusion at C6-7 with extruded component causing mild canal stenosis. There is contusion of the cord at this level. 4. Posterior disc osteophyte complex at C3-4 without canal stenosis. 5. Contusion of the spinal cord at C5 down to C6-7 level. 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 Treatment options were discussed including continued conservative management with occupational physical therapy and rehabilitation. We also discussed surgical intervention involving an anterior C5-6 microdiscectomy with fusion along the risks and benefits involved with the patient and her sister at the bedside. She will review her options in the meantime continue with rehabilitation and inform us if she elects to proceed with surgical intervention. (1) Cervical spinal cord injury Qualifiers: Encounter type: initial encounter Qualified Code(s): S14.109A - Unspecified injury at unspecified level of cervical spinal cord, initial encounter (2) Contusion of cervical cord Qualifiers: Encounter type: initial encounter Qualified Code(s): S14.109A - Unspecified injury at unspecified level of cervical spinal cord, initial encounter (5) Concussion Qualifiers: Encounter type: initial encounter Loss of consciousness presence/duration: with LOC of unspecified duration Qualified Code(s): S06.0X9A - Concussion with loss of consciousness of unspecified duration, initial encounter
[2018-09-22] MEDS: Pantoprazole Inj 40 MG Vial IV.PUSH SCH (17:44)
[2018-09-23] MEDS: Sod Chloride 0.9% Inj 1,000 ML IV.CONT SCH ×2 (04:09→15:39)
[2018-09-23] MEDS: Docusate Sodium 100 MG Capsule PO SCH (08:37)
--- NOTE | 2018-09-23 09:11 | P.PNNS ---
Subjective Interval history: Pt awake and alert. States some strength in right hand improving. She has unsteadiness when oob she states. She has urinary frequency but no incontinence or urgency. She has paresthesias in her hands right more than left but not in her arms or legs. She wants to continue with rehab since she has noted some improvement. She expressed she understands she would be at increased risk of worse spinal cord injury with any subsequent falls or whiplash neck movement. She states she enjoys riding horses. <Compa Castillo - Last Filed: 09/23/18 09:02> Physical Exam Vital signs: Vital Signs 09/22/18 12:00 09/22/18 13:38 09/22/18 14:25 Temperature 97.9 F 98.7 F Pulse Rate 64 67 Respiratory Rate 17 18 17 Blood Pressure 118/68 140/64 Pulse Oximetry 97 99 09/22/18 19:37 09/22/18 20:25 09/23/18 00:25 Temperature 99.2 F 99.2 F 98.2 F Pulse Rate 65 65 62 Respiratory Rate 18 18 Blood Pressure 129/67 129/67 131/78 Pulse Oximetry 98 09/23/18 00:50 09/23/18 04:00 09/23/18 04:25 Temperature 98.2 F 98.3 F 98.3 F Pulse Rate 62 63 63 Respiratory Rate 18 18 Blood Pressure 131/78 128/73 128/73 Pulse Oximetry 97 97 Intake & Output 09/22/18 09/23/18 09/23/18 18:59 06:59 18:59 Intake Total 1720 / 1720 1120 / 1120 Balance 1720 / 1720 1120 / 1120 Weight 57.6 kg Intake: IV 1000 / 1000 1000 / 1000 NS Inj 1,000 ML @ 100 mls/hr IV 1000 / 1000 1000 / 1000 .CONT .Q10H [facility] Rx#:[id number] Oral 720 / 720 120 / 120 Other: # Voids 4 1 Date of Last Bowel Movement 09/21/18 09/22/18 # Bowel Movements 0 - Constitutional no acute distress, average body habitus, cooperative - Routine HEENT Exam Head: Absent: atraumatic (Left periorbital ecchymosis and abrasion.) Eye: Present: PERRL - Routine Respiratory Exam Present: CTA bilaterally. Absent: respiratory distress, rhonchi, wheezes - Routine Cardiovascular Exam Present: RRR, S1, S2. Absent: murmur - Routine Abdominal Exam Present: soft, normoactive bowel sounds. Absent: distended, firm - Routine Skin Exam Absent: cyanosis, erythema Comments: Left periorbital ecchymosis. - Routine Neurological Exam Present: alert, sensory deficit (tingling in hands right more than left states sensation intact in upper and lower extremities otherwise.), motor deficit ( Weakness in bilateral hands right 2+/5 able to make a fist but limited pressure , Left hand 3/5, bilateral triceps weakness 3/5, Biceps 4/5 bilaterally, Triceps 4/5 bilaterally.), moving all extremities - Routine Psychiatric Exam Present: normal affect, cooperative. Absent: anxious, agitated <Cmopa Castillo - Last Filed: 09/23/18 09:02> Vital signs: Vital Signs 09/22/18 19:37 09/22/18 20:25 09/23/18 00:25 Temperature 99.2 F 99.2 F 98.2 F Pulse Rate 65 65 62 Respiratory Rate 18 18 Blood Pressure 129/67 129/67 131/78 Pulse Oximetry 98 09/23/18 00:50 09/23/18 04:00 09/23/18 04:25 Temperature 98.2 F 98.3 F 98.3 F Pulse Rate 62 63 63 Respiratory Rate 18 18 Blood Pressure 131/78 128/73 128/73 Pulse Oximetry 97 97 09/23/18 11:30 Temperature 98.2 F Pulse Rate 58 L Respiratory Rate 17 Blood Pressure 151/72 H Pulse Oximetry 100 Intake & Output 09/22/18 09/23/18 09/23/18 18:59 06:59 18:59 Intake Total 1720 / 1720 1120 / 1120 Balance 1720 / 1720 1120 / 1120 Weight 57.6 kg Intake: IV 1000 / 1000 1000 / 1000 NS Inj 1,000 ML @ 100 mls/hr IV 1000 / 1000 1000 / 1000 .CONT .Q10H [facility] Rx#:[id number] Oral 720 / 720 120 / 120 Other: # Voids 4 1 Date of Last Bowel Movement 09/21/18 09/22/18 # Bowel Movements 0 <Donaldo Carreon - Last Filed: 09/23/18 14:54> Assessment and Plan - Assessment (1) Concussion Code(s): S06.0X9A - Concussion with loss of consciousness of unspecified duration, initial encounter Status: Acute Qualifiers: Encounter type: initial encounter Loss of consciousness presence/duration: with LOC of unspecified duration Qualified Code(s): S06.0X9A - Concussion with loss of consciousness of unspecified duration, initial encounter (2) Fall Code(s): W19.XXXA - Unspecified fall, initial encounter Status: Acute Qualifiers: Encounter type: initial encounter Qualified Code(s): W19.XXXA - Unspecified fall, initial encounter (3) Face lacerations Code(s): S01.81XA - Laceration without foreign body of other part of head, initial encounter Status: Acute Qualifiers: Encounter type: initial encounter Qualified Code(s): S01.81XA - Laceration without foreign body of other part of head, initial encounter (4) Cervical spinal cord injury Code(s): S14.109A - Unspecified injury at unspecified level of cervical spinal cord, initial encounter Status: Acute Qualifiers: Encounter type: initial encounter Qualified Code(s): S14.109A - Unspecified injury at unspecified level of cervical spinal cord, initial encounter (5) Contusion of cervical cord Code(s): S14.109A - Unspecified injury at unspecified level of cervical spinal cord, initial encounter Status: Acute Qualifiers: Encounter type: initial encounter Qualified Code(s): S14.109A - Unspecified injury at unspecified level of cervical spinal cord, initial encounter (6) Cervical stenosis of spinal canal Code(s): M48.02 - Spinal stenosis, cervical region Status: Acute (7) Cervical disc disorder at C5-C6 level with myelopathy Code(s): M50.022 - Cervical disc disorder at C5-C6 level with myelopathy Status: Acute - Plan 72-year-old lady with a central cervical spinal cord injury with extensive spinal cord contusion and a moderate C5-6 stenosis from a disc osteophyte complex and lesser degree of adjacent segment disc protrusions. Treatment options were discussed including continued conservative management with occupational physical therapy and rehabilitation. We also discussed surgical intervention involving an anterior C5-6 microdiscectomy with fusion along the risks and benefits involved with the patient and her sister at the bedside. P: Continue with PT and OT Continue with current care Discussed with pt risk of further spinal cord injury which could result in complete paralysis including bowel and bladder with any whiplash injury and she expressed her understanding. <Compa Castillo - Last Filed: 09/23/18 09:02> - Assessment (1) Cervical spinal cord injury Code(s): S14.109A - Unspecified injury at unspecified level of cervical spinal cord, initial encounter Status: Acute Qualifiers: Encounter type: initial encounter Qualified Code(s): S14.109A - Unspecified injury at unspecified level of cervical spinal cord, initial encounter (2) Contusion of cervical cord Code(s): S14.109A - Unspecified injury at unspecified level of cervical spinal cord, initial encounter Status: Acute Qualifiers: Encounter type: initial encounter Qualified Code(s): S14.109A - Unspecified injury at unspecified level of cervical spinal cord, initial encounter (3) Cervical stenosis of spinal canal Code(s): M48.02 - Spinal stenosis, cervical region Status: Acute (4) Cervical disc disorder at C5-C6 level with myelopathy Code(s): M50.022 - Cervical disc disorder at C5-C6 level with myelopathy Status: Acute (5) Concussion Code(s): S06.0X9A - Concussion with loss of consciousness of unspecified duration, initial encounter Status: Acute Qualifiers: Encounter type: initial encounter Loss of consciousness presence/duration: with LOC of unspecified duration Qualified Code(s): S06.0X9A - Concussion with loss of consciousness of unspecified duration, initial encounter - Attending Attestation The exam, history, and the medical decision-making described in the above note were completed with the assistance of the mid-level provider. I reviewed and agree with the findings presented. I attest that I had a [id number] encounter with the patient on the same day, and personally performed and documented my assessment and findings in the medical record. She has elected on nonsurgical management and will continue with rehabilitation and follow-up as needed. <Donaldo Carreon - Last Filed: 09/23/18 14:54>
[2018-09-23] MEDS ORDERED: Acetaminophen 325 MG Tablet PO PRN (10:58)
--- NOTE | 2018-09-23 12:53 | P.PN ---
Subjective Interval history: Trauma PTD: 2 Patient lying in bed. No distress noted. Visitor at bedside. Patient states, "I am doing much better today." "I would like to go home by tomorrow." Physical Exam Vital signs: Vital Signs 09/22/18 13:38 09/22/18 14:25 09/22/18 19:37 Temperature 98.7 F 99.2 F Pulse Rate 67 65 Respiratory Rate 18 17 18 Blood Pressure 140/64 129/67 Pulse Oximetry 99 98 09/22/18 20:25 09/23/18 00:25 09/23/18 00:50 Temperature 99.2 F 98.2 F 98.2 F Pulse Rate 65 62 62 Respiratory Rate 18 18 Blood Pressure 129/67 131/78 131/78 Pulse Oximetry 97 09/23/18 04:00 09/23/18 04:25 09/23/18 11:30 Temperature 98.3 F 98.3 F 98.2 F Pulse Rate 63 63 58 L Respiratory Rate 18 17 Blood Pressure 128/73 128/73 151/72 H Pulse Oximetry 97 100 Intake & Output 09/22/18 09/23/18 09/23/18 18:59 06:59 18:59 Intake Total 1720 / 1720 1120 / 1120 Balance 1720 / 1720 1120 / 1120 Weight 57.6 kg Intake: IV 1000 / 1000 1000 / 1000 NS Inj 1,000 ML @ 100 mls/hr IV 1000 / 1000 1000 / 1000 .CONT .Q10H [facility] Rx#:[id number] Oral 720 / 720 120 / 120 Other: # Voids 4 1 Date of Last Bowel Movement 09/21/18 09/22/18 # Bowel Movements 0 Narrative: GENERAL: This is a 80-year-old female lying in bed. No distress noted. SKIN: Warm and dry. Scattered abrasions/ecchymosis to left side of face. Small superficial laceration to left eyebrow. HEAD: Atraumatic. Normocephalic. EYES: PERRLA ENT: No nasal bleeding or discharge. Mucous membranes pink and moist. NECK: Trachea midline. No JVD. CARDIOVASCULAR: Regular rate and rhythm. RESPIRATORY: No accessory muscle use. Lungs are clear to auscultation. Breath sounds equal bilaterally. No distress or dyspnea. GASTROINTESTINAL: BS + x 4 quads. Abdomen soft, non-tender, nondistended. MUSCULOSKELETAL: Extremities without cyanosis, or edema. + peripheral pulses x 4 extremities. Warm with good capillary refill and sensation. MAEW. Patient has decreased strength to right upper extremity. (Remains weak, but improved since yesterday) NEUROLOGICAL: Awake and alert. Normal speech and pattern. Results - Labs CBC & Chem 7: 09/21/18 11:55 Laboratory Results - last 24 hr 09/23/18 07:57 POC Glucose 82 - Imaging Impressions Wrist X-Ray 09/22/18 00:00 CONCLUSION: 1. No acute fracture or joint dislocation. 2. Degenerative arthritis involving the carpal bones. Cervical Spine MRI 09/22/18 12:10 CONCLUSION: 1. Minimal anterolisthesis C4 on 5 with central/left-sided protrusion. No canal stenosis. 2. Mild broad-based protrusion more eccentric the left at C5-6 causing mild canal stenosis. There is contusion of the cord at this level. 3. Mild broad-based protrusion at C6-7 with extruded component causing mild canal stenosis. There is contusion of the cord at this level. 4. Posterior disc osteophyte complex at C3-4 without canal stenosis. 5. Contusion of the spinal cord at C5 down to C6-7 level. Assessment and Plan - Assessment (1) Concussion Code(s): S06.0X9A - Concussion with loss of consciousness of unspecified duration, initial encounter Status: Acute (2) Fall Code(s): W19.XXXA - Unspecified fall, initial encounter Status: Acute (3) Face lacerations Code(s): S01.81XA - Laceration without foreign body of other part of head, initial encounter Status: Acute - Plan COUNCIL: This is a 74-g[age]-old female who sustained injuries while riding her horse. She got hit by a tree, and fell. She was confused with repetitive questioning. INJURIES: Concussion LEFT eye laceration LEFT anterior pinna laceration LEFT face lac (2, 2 sutures) C4-C5 anterolithesis C5-C6 protrusion w/ canal stenosis C6-C7 protrusion w/ canal stenosis C5-C7 spinal cord CONTUSION Right hepatic cyct Procedures: Consults: Neurosurgery. Case management. Patient with complaints of right wrist/upper extremity weakness with numbness. Will obtain MRI C-spine, and consult neurosurgery for further evaluation and care. Diet: Regular diet. Tolerating po diet. Encourage good po intake with each meal. Pulmonary: Encourage good pulmonary toileting. IS at bedside and pt encouraged to use. Rationale for use explained to patient, and verbalized understanding. PAIN Management: Tylenol (if she does not want narcotics) Oxycodone 5 mg q 4h. Dilaudid 0.5 mg q 4h for breakthrough pain. Activity: OOB. PT and OT ordered. GI prophylaxis: Protonix 40 mg IV Bowel regimen: Colace. MOM. LBM: 0 DVT prophylaxis: Mechanical VTE with SCDs. Chemical management TBD. DC Planning: Case management consulted for assistance with final discharge disposition. Emotional support provided to patient at bedside and plan of care discussed. Discussed with RN at bedside. Discussed pt condition and plan of care with collaborating trauma surgeon. Patient is hemodynamically stable and being managed on the med/surg floor. The trauma team will round each day, and evaluate plan of care on a daily basis. Concussion LEFT eye laceration LEFT anterior pinna laceration LEFT face lac (2, 2 sutures) Serial neuro checks Supportive care Prevent secondary head injury Postconcussive education Follow-up in concussion clinic upon discharge Wash facial sutures daily with soap and water. Pat dry. Plan for suture removal in 2-3 days. Right upper extremity weakness Worrisome for spinal cord injury Neurosurgery consulted and assisting in management and plan Conservative treatment versus surgery (C5-6 microdiscectomy) Awaiting for patient to make a decision Supportive care Pain management Serial neuro check Right wrist - NEG for fracture 09/21: CT C-spine - Mild broad-based bulging with disc osteophyte complex at C5- 6. Bilateral facet arthritis at multiple levels. Minimal anterior spondylolisthesis of C4 over C5 by approximately 2 mm. 09/22: MRI C-spine - C4-C5 anterolisthesis, C5-C6 protrusion w/ canal stenosis, C6-C7 protrusion w/ canal stenosis, C5-C7 spinal cord CONTUSION Encourage out of bed PT and OT ordered Bowel regimen SCDs for DVT prophylaxis - Attending Attestation Patient continues to have weakness upper extremities however with some improvement-MRI shows spinal cord contusion and neurosurgery has been consulted his input is pending (1) Concussion Qualifiers: Encounter type: initial encounter Loss of consciousness presence/duration: with LOC of unspecified duration Qualified Code(s): S06.0X9A - Concussion with loss of consciousness of unspecified duration, initial encounter (2) Fall Qualifiers: Encounter type: initial encounter Qualified Code(s): W19.XXXA - Unspecified fall, initial encounter (3) Face lacerations Qualifiers: Encounter type: initial encounter Qualified Code(s): S01.81XA - Laceration without foreign body of other part of head, initial encounter
[2018-09-23] MEDS: Pantoprazole Inj 40 MG Vial IV.PUSH SCH (15:33)
[2018-09-23] MEDS: Acetaminophen 325 MG Tablet PO PRN ×2 (15:33→20:49)
[2018-09-24] MEDS: Docusate Sodium 100 MG Capsule PO SCH ×2 (02:19→09:19)
[2018-09-24 06:07] LABS: Baso % (Auto) 0.4 % (0.0-2.0); Eos % (Auto) 0.4 % (0.0-4.0); Hematocrit 35.6 % (35.0-46.0); Hemoglobin 12.9 gm/dL (11.6-15.3); Lymph # (Auto) 1.9 th/mm3 (1.0-4.8); Mean Corpuscular Hemoglobin 32.4 pg (27.0-34.0); Mean Platelet Volume 7.8 fL (7.0-11.0); Mono # (Auto) 0.8 th/mm3 (0.0-0.9); Mono % (Auto) 8.2 % (0.0-8.0); Neut # (Auto) 6.8 th/mm3 (1.8-7.7); Platelet Count 240 th/mm3 (150-450); Red Cell Distribution Width 12.5 % (11.6-17.2); White Blood Count 9.5 th/mm3 (4.0-11.0)
[2018-09-24 06:14] LABS: Mean Corpuscular HGB Conc 36.3 % (32.0-36.0)
[2018-09-24 06:27] LABS: Anion Gap 7 meq/L (5-15); Blood Urea Nitrogen 5 mg/dL (7-18); Calcium 8.7 mg/dL (8.5-10.1); Chloride 104 meq/L (98-107); Glomerular Filtration Rate Greater Than 89 mL/min (>89); Glucose,Random 89 mg/dL (74-106); Potassium 3.5 meq/L (3.5-5.1); Sodium 139 meq/L (136-145)
--- NOTE | 2018-09-24 07:26 | P.DCO ---
- Physical Therapy Order: Evaluate and treat, Improve ambulation, Strength and gait training - Occupational Therapy Order: Evaluate and treat, Improve ADL, Gross motor coordination - Home Health Nursing Order: Medical education, Signs/symptoms of disease process, Medication education-adverse effect, Nursing assessment with vital signs - Case Management Consult Case Management Consult-Home Health: Yes - Certification I have seen patient Megan Box on 09/24/18. My clinical findings support the need for the requested home health care services because: Limited mobility due to disease progression, Deconditioned with increased weakness, Limited ability to care for self, High risk of falls I certify that my clinical findings support that this patient is homebound because: Post-op weakness, Unsteady gait/balance, Unsafe to leave home unassisted, Unable to use public transportation
[2018-09-24] MEDS: Acetaminophen 325 MG Tablet PO PRN (09:51)
--- NOTE | 2018-09-24 16:02 | P.DS ---
Date of admission: 09/21/18 15:23 Primary care physician: Risa Primary Care Physician Attending physician on discharge: Janette Quinones Anticipated date of discharge: 09/24/18 Brief History from admission: Fall from a horse DS: Diagnosis - Discharge Diagnosis (1) Concussion Status: Acute (2) Fall Status: Acute (3) Face lacerations Status: Acute DS: Summary Hospital Course: NINIL[place]IK: This is a 84-uoz-stud-old female who sustained injuries while riding her horse. She got hit by a tree, and fell. She was confused with repetitive questioning. INJURIES: Concussion LEFT eye laceration LEFT anterior pinna laceration LEFT face lac (2, 2 sutures) C4-C5 anterolithesis C5-C6 protrusion w/ canal stenosis C6-C7 protrusion w/ canal stenosis C5-C7 spinal cord CONTUSION Right hepatic cyct Procedures: Consults: Neurosurgery. Case management. The patient really would like to go home today. She has decided on nonoperative management/conservative treatment. The patient is now tolerating a po diet. Eating and drinking well. Pain is being managed well with PO pain medications, patient has not required narcotics during stay, and prefers Tylenol. Patient may manage her pain with OTC Tylenol at home. Pt is having regular bowel movements, and have recommended to patient to continue with stool softeners while taking narcotic pain medications to prevent constipation. Pt has been participating in PT and OT while admitted at [facility] and has been ambulating with their assistance and independently. PT recommends home health care. [id number] completed. DME ordered. All follow up appointments have been provided and discussed with the patient. It is recommended that the patient keeps all his follow up appointments for continued recovery. Discussed with patient the importance of refraining from concussive sports, no heavy lifting or bending. And refrain from horseback riding at this time. Patient's condition and plan of care discussed with collaborating trauma surgeon. He is agreeable to plan for discharge today. Therefore, the patient is stable to be safely discharged home from a trauma surgery standpoint. Thank you for allowing us to participate in his care. We wish Megan the best in his recovery. Concussion LEFT eye laceration LEFT anterior pinna laceration LEFT face lac (2, 2 sutures) Serial neuro checks Supportive care Prevent secondary head injury Postconcussive education Follow-up in concussion clinic upon discharge Wash facial sutures daily with soap and water. Pat dry. Facial sutures removed today prior to discharge Patient will return to PCP for sutures removal for sutures behind her left ear Right upper extremity weakness Worrisome for spinal cord injury Neurosurgery consulted and assisting in management and plan Conservative treatment versus surgery (C5-6 microdiscectomy) Patient has decided on conservative treatment, and does not want surgery at this time Supportive care Pain management Serial neuro check Right wrist - NEG for fracture 09/21: CT C-spine - Mild broad-based bulging with disc osteophyte complex at C5- 6. Bilateral facet arthritis at multiple levels. Minimal anterior spondylolisthesis of C4 over C5 by approximately 2 mm. 09/22: MRI C-spine - C4-C5 anterolisthesis, C5-C6 protrusion w/ canal stenosis, C6-C7 protrusion w/ canal stenosis, C5-C7 spinal cord CONTUSION Encourage out of bed PT and OT ordered Bowel regimen SCDs for DVT prophylaxis Neurosurgery of cleared the patient for discharge Follow-up with neurosurgeon outpatient - Time Spent with Patient Total time spent providing and/or coordinating discharge services: Greater than 30 minutes - Quality: VTE Deep Vein Thrombosis/Pulmonary Embolism Present on Admission: No Exam Vital signs: Vital Signs 09/23/18 19:40 09/23/18 23:15 09/24/18 03:25 Temperature 98 F 98.1 F 97.8 F Pulse Rate 67 61 65 Respiratory Rate 18 18 18 Blood Pressure 144/74 H 130/63 147/73 H Pulse Oximetry 98 98 98 09/24/18 08:00 09/24/18 12:00 Temperature 98.4 F 98.0 F Pulse Rate 60 64 Respiratory Rate 14 16 Blood Pressure 149/74 H 137/90 Pulse Oximetry 99 97 Intake & Output 09/23/18 09/24/18 09/24/18 18:59 06:59 18:59 Intake Total 1360 / 1360 120 / 120 Balance 1360 / 1360 120 / 120 Weight 55.3 kg Intake: IV 400 / 400 NS Inj 1,000 ML @ 100 mls/hr IV 400 / 400 .CONT .Q10H [facility] Rx#:[id number] Oral 960 / 960 120 / 120 Other: # Voids 3 4 Date of Last Bowel Movement 09/22/18 09/22/18 # Bowel Movements 0 Narrative: GENERAL: This is a 80-year-old female lying in bed. No distress noted. SKIN: Warm and dry. Scattered abrasions/ecchymosis to left side of face. Small superficial laceration to left eyebrow. HEAD: Atraumatic. Normocephalic. EYES: PERRLA ENT: No nasal bleeding or discharge. Mucous membranes pink and moist. NECK: Trachea midline. No JVD. CARDIOVASCULAR: Regular rate and rhythm. RESPIRATORY: No accessory muscle use. Lungs are clear to auscultation. Breath sounds equal bilaterally. No distress or dyspnea. GASTROINTESTINAL: BS + x 4 quads. Abdomen soft, non-tender, nondistended. MUSCULOSKELETAL: Extremities without cyanosis, or edema. + peripheral pulses x 4 extremities. Warm with good capillary refill and sensation. MAEW. Patient has decreased strength to right upper extremity. NEUROLOGICAL: Awake and alert. Normal speech and pattern. Results Procedures completed during hospitalization: , Labs on day of discharge: Labs from last 24 hours 09/24/18 09/24/18 05:24 05:24 WBC 9.5 RBC 4.00 Hgb 12.9 Hct 35.6 MCV 89.0 MCH 32.4 MCHC 36.3 H RDW 12.5 Plt Count 240 MPV 7.8 Prelim Diff (Auto) Slide review pending Neut % (Auto) 71.0 H Lymph % (Auto) 20.0 [place] % (Auto) 8.2 H Eos % (Auto) 0.4 Baso % (Auto) 0.4 Neut # (Auto) 6.8 Lymph # (Auto) 1.9 [place] # (Auto) 0.8 Eos # (Auto) 0.0 Baso # (Auto) 0.0 WBC Differential . Diff Scan Auto diff confirmed Differential Comment . Sodium 139 Potassium 3.5 Chloride 104 Carbon Dioxide 28.0 Anion Gap 7 BUN 5 L Creatinine 0.45 L Estimated GFR Greater than 89 Random Glucose 89 Calcium 8.7 - Impressions ITS Impressions Shoulder X-Ray 09/21/18 00:00 CONCLUSION: No acute fracture or joint dislocation. Chest X-Ray 09/21/18 11:52 CONCLUSION: No focal or acute intrathoracic disease. Pelvis X-Ray 09/21/18 11:52 CONCLUSION: No acute fracture or joint dislocation. Abdomen/Pelvis CT 09/21/18 11:55 CONCLUSION: 1. No acute pathology in the abdomen and pelvis. 2. 1.1 cm benign-appearing right hepatic cyst. 3. Degenerative changes throughout the lumbar spine and pelvis. Cervical Spine CT 09/21/18 11:55 CONCLUSION: 1. No acute bony fracture. 2. Mild broad-based bulging with disc osteophyte complex at C5-6. 3. Bilateral facet arthritis at multiple levels. 4. Minimal anterior spondylolisthesis of C4 over C5 by approximately [address] 09/21/18 11:55 CONCLUSION: 1. No acute intrathoracic disease. Face CT 09/21/18 11:55 CONCLUSION: 1. No acute bony fracture. Head CT 09/21/18 11:55 CONCLUSION: 1. Unremarkable CT scan of the brain. . Wrist X-Ray 09/22/18 00:00 CONCLUSION: 1. No acute fracture or joint dislocation. 2. Degenerative arthritis involving the carpal bones. Cervical Spine MRI 09/22/18 12:10 CONCLUSION: 1. Minimal anterolisthesis C4 on 5 with central/left-sided protrusion. No canal stenosis. 2. Mild broad-based protrusion more eccentric the left at C5-6 causing mild canal stenosis. There is contusion of the cord at this level. 3. Mild broad-based protrusion at C6-7 with extruded component causing mild canal stenosis. There is contusion of the cord at this level. 4. Posterior disc osteophyte complex at C3-4 without canal stenosis. 5. Contusion of the spinal cord at C5 down to C6-7 level. Discharge Plan - Discharge Disposition Patient Disposition: Disch /Home Health Service - Discharge Condition Condition: Stable - Discharge Order Discharge Orders: Discharge Order (Routine); Ordered 09/24/18 Ordered By: Roula Brewster ED Use Only Admit Order (Routine); Ordered 09/21/18 Ordered By: Ermelinda Hoang - Discharge Details Anticipated Discharge Date: 09/24/18 - Physicians Team Primary Care Provider: Primary Care Physici,No Attending Provider: Lee Goodman Other Providers: Mian Elkins MD ; Perico Babin MD ; [employer] [employer] [facility] ; Vick Ballard MD ; Roula Brewster ARNP ; Lee Goodman MD ; Vanda Solis MD ; Ezekiel Giron ARNP ; Janette Quinones MD ; Donaldo Carreon MD ; [facility]
== END 2018-09-24 13:52 | disposition home health service (06) ==
LOC: NEPI 11:51 → EDBD 15:23 → NEDA 15:23 → N06 17:11
PROVIDERS: ADMIT Surgery; ATTEND Surgery